=== PATIENT | male | born 1990 | race Caucasian/White ===

== ENCOUNTER 2023-02-03 09:46 | Emergency (ER) | payer MEDICAID ==
[~2023-02-03] VITALS: Ht 170.2 cm; Wt 68.0 kg
[2023-02-03] MEDS ORDERED: FLUORESCEIN SODIUM 1 MG STRIP OP ONE (11:00)
[2023-02-03] MEDS ORDERED: TONOPEN 1 EA EA MC ONE (11:00)
[2023-02-03] MEDS ORDERED: TETRACAINE HCL 0.5% OPHT DROP 2 ML BOTTLE OP ONE (11:00)
[2023-02-03 11:05] LABS: CREATININE 0.8 mg/dL (0.6-1.3); POTASSIUM 3.7 mmol/L (3.5-5.1)
[2023-02-03] MEDS ORDERED: IOHEXOL 300MG/ML 100 ML INFUS..BTL ONE (11:10)
[2023-02-03] MEDS ORDERED: SWABABLE VALVE TRANSFER SET EA MC ONE (11:10)
[2023-02-03] MEDS ORDERED: IV NORMAL SALINE 250 ML IV ONE (11:10)
[2023-02-03] MEDS ORDERED: TETRACAINE HCL 0.5% OPHT DROP 2 ML BOTTLE ONE (11:12)
[2023-02-03] MEDS ORDERED: FLUORESCEIN SODIUM 1 MG STRIP ONE (11:12)
--- NOTE | 2023-02-03 12:33 | NUR ---
Removed IV intact, site okay, bandaged. Gave pt d/c instructions by MD, pt verbalized understanding.
== END 2023-02-03 12:38 | disposition home or self-care (01) ==
LOC: ER 09:51
DX: H57.89 Other specified disorders of eye and adnexa (principal)
CPT/HCPCS: 99285; 80048; 36415; Q9967; A4663